=== PATIENT | female | born 1960 | race Caucasian/White ===

== ENCOUNTER 2024-08-22 14:26 | Emergency (ER) | payer MEDICARE, SELFPAY ==
[2024-08-22 14:27] VITALS: BP 118/50; PULSE 87; RESP 18; TEMP 36.4; O2SAT 96; BMI 21.9
[2024-08-22 14:38] VITALS: BP 118/50; PULSE 68; RESP 16; O2SAT 96
--- NOTE | 2024-08-22 16:06 | ED_ITS ---
HPI - General Adult General: Chief complaint: General Medical Stated complaint: displaced pina cath Time Seen by Provider: 08/22/24 14:28 History of Present Illness: This patient is a 64-year-old white female who presents to the emergency department needing Pina catheter replaced. Patient has vulvar cancer. Her home health care nurse saw her today. The Pina was not draining so it was removed. Home health care nurse tried to replace it but could not get another one in. Related Data Home Medications ?Medication ?Instructions ?Recorded ?Confirmed diphenhydramine HCl 25 mg tablet 25 mg PO Q4H PRN joshua rgic 08/22/24 08/22/24 reaction/rash/itching ipratropium 0.5 mg-albuterol 3 mg 3 ml inhalation Q6H PRN Shortness 08/22/24 08/22/24 (2.5 mg base)/3 mL nebulization Of Breath Or Wheezing soln lidocaine 5 % topical ointment 1 applic topical .5XDAI LY PRN 08/22/24 08/22/24 topical pain nitroglycerin 0.4 mg sublingual See Rx Instructions .R oute .COMPLEX 08/22/24 08/22/24 tablet polyethylene glycol 3350 17 See Rx Instructions .Route .COMPLEX 08/22/24 08/22/24 gram/dose oral powder (ClearLax) Previous Rx's ?Medication ?Instructions ?Recorded atropine 1 % eye drops 4 drp sublingual Q4H PRN 11/07 secretions #5 mL bisacodyl 10 mg rectal suppository 10 mg VT DAILY PRN constipation #5 08/18/24 ea hydroxyzine HCl 25 mg tablet 25 mg PO TID PRN Itching #5 tabs 08/18/24 lorazepam 2 mg/mL oral concentrate 2 mg sublingual Q4H PRN 08/18/24 Anxiety/Seizure #30 mL morphine concentrate 100 mg/5 mL 20 mg sublingual D IRECTED PRN 08/18/24 (20 mg/mL) oral solution Pain/SOB 14 days #30 mL ondansetron 4 mg disintegrating 4 mg translingual Q4H PRN nausea 08/18/24 tablet #5 tabs Allergies Allergy/AdvReac Type Severity Reaction Status Date / Time Penicillins Allergy rash Verified 08/18/24 15:59 Sulfa (Sulfonamide Allergy rash Verified 08/18/24 15:59 Antibiotics) Review of Systems General: Reports: 10 or more systems reviewed and unremarkable except in HPI and below Physical Exam Const: COMMON NORMALS: no acute distress, patient oriented x3 and no limitations GENERAL APPEARANCE: cooperative and comfortable HENMT: COMMON NORMALS: normocephalic, atraumatic, Normal nasal mucous memb ranes and turbinates present, moist oral mucous membranes and oropharynx normal HEAD & SCALP: normal to inspection, normocephalic and atraumatic FACE & SINUS: normal facial exam NOSE: Normal nasal mucous membranes and turbinates present Eye: COMMON NORMALS: Equal, round and reactive pupils present, EOMs intact bilaterally and conjunctivae normal GENERAL EYE: appearance normal, both eyes and all related structures CONJUNCTIVA: Yes conjunctivae normal PUPIL: Yes Equal, round and reactive pupils present Neck/C-Spine: COMMON NORMALS: supple and no JVD Chest: COMMONS NORMALS: normal inspection of the chest Resp: COMMON NORMALS: normal respiratory effort and clear to auscultation bilaterally AUSCULTATION: clear to auscultation bilaterally Cardio: COMMON NORMALS: no JVD, regular rate, regular rhythm, No gallops present (Cardio), No murmurs present (Cardio) and No rub (Cardio) RATE: regular rate RHYTHM: regular rhythm GI: COMMON NORMALS: Normal to inspection, nondistended, normoactive bowel sounds present, Soft to palpation and non-tender AUSCULTATION: Yes normoactive bowel sounds PALPATION: Yes Soft to palpation : COMMON NORMALS: Yes no CVA tenderness BLADDER/KIDNEY EXAM: Yes no CVA tenderness Back/Pelvis: COMMON NORMALS: no CVA tenderness and thoracic and lumbar spine normal to inspection Extremity: COMMON NORMALS: normal to inspection Neuro: COMMON NORMALS: patient oriented x3 and CN's II-XII intact bilaterally Psych: COMMON NORMALS: mental status grossly normal, Normal thought process present and cooperative THOUGHT PROCESS: Normal thought process present Skin: COMMON NORMALS: no rashes or lesions noted, turgor normal and no jaundice GENERAL SKIN EXAM: no rashes or lesions noted and turgor normal Course Vital Signs: Vital signs: Vital Signs Temperature 97.6 F 08/22/24 14:27 Pulse Rate 68 08/22/24 14:38 Respiratory Rate 16 08/22/24 14:38 Blood Pressure 118/50 08/22/24 14:38 Pulse Oximetry 96 08/22/24 14:38 Oxygen Delivery Me thod Nasal Cannula 08/22/24 14:27 Oxygen Flow Rate 2 08/22/24 14:27 MDM - General Adult Medical Decision Making Nursing staff replaced the Pina catheter. Patient was discharged in stable condition. No radiology studies performed this visit Discharge Plan Discharge Patient Disposition: Home Clinical Impression: Dislodged Pina catheter Qualifiers: Encounter type: initial encounter Qualified Code(s): T83.021A - Displacement of indwelling urethral catheter, initial encounter Condition: Stable Prescriptions: No Action ondansetron 4 mg tablet,disintegrating 4 mg translingual Q4H PRN (Reason: nausea) Qty: 5 0RF bisacodyl 10 mg suppository 10 mg VT DAILY PRN (Reason: constipation) Qty: 5 0RF lorazepam 2 mg/mL concentrate 2 mg sublingual Q4H PRN (Reason: Anxiety/Seizure) Qty: 30 0RF Rx Instructions: 0.25ml-1ml every 4 hours as needed for Anxiety/Seizure. Start 0.25ml may increase to 0.5ml-1ml every 4 hours. morphine concentrate 100 mg/5 mL (20 mg/mL) solution 20 mg sublingual DIRECTED PRN (Reason: Pain/SOB) 14 Days Qty: 30 0RF Rx Instructions: Give 0.25ml-1ml every hour as needed. May increase to 0.5ml-1ml every hour as needed. atropine 1 % drops 4 drp sublingual Q4H PRN (Reason: secretions) Qty: 5 0RF Rx Instructions: 4 drops SL q 4 hours PRN for terminal congestion/excessive secretions. hydroxyzine HCl 25 mg tablet 25 mg PO TID PRN (Reason: Itching) Qty: 5 0RF ipratropium-albuterol 0.5 mg-3 mg(2.5 mg base)/3 mL solution for nebulization 3 ml INHALATION Q6H PRN (Reason: Shortness Of Breath Or Wheezing) nitroglycerin 0.4 mg tablet, sublingual See Rx Instructions .ROUTE .COMPLEX Rx Instructions: DISSOLVE 1 TABLET UNDER THE TONGUE EVERY 5 MINUTES NEEDED FOR CHEST PAIN. DO NOT EXCEED A TOTAL OF 3 DOSES IN 15 MINUTES.. IF not resolved contact hospice. polyethylene glycol 3350 [ClearLax] 17 gram/dose powder See Rx Instructions .ROUTE .COMPLEX Rx Instructions: DISSOLVE 17grams in liquid AND drink EVERY DAY FOR CONSTIPATION. lidocaine 5 % ointment 1 applic topical .5XDAILY PRN (Reason: topical pain) diphenhydramine HCl 25 mg tablet 25 mg PO Q4H PRN (Reason: allergic reaction/rash/itching) Discharge Orders: Discharge ED (Routine); Ordered 08/22/24 Ordered By: Agustin Baumann Print Language: Belarusian Coding Level of Care Code ED [employer] for Gamlaiel Pierce
[2024-08-22] MEDS: HYDROcodone-acetaminophen 5-325 mg Tablet 2 TAB PO (16:17)
--- NOTE | 2024-08-22 16:41 | PC.PHAR ---
Pt is on [facility]-nurse finally called back and verified all pt medications.
[2024-08-22 16:47] VITALS: BP 104/54; O2SAT 94
[2024-08-22 17:01] VITALS: BP 104/54; PULSE 110; RESP 16; O2SAT 98
== END 2024-08-22 17:02 | disposition home or self-care (01) ==
PROVIDERS: Emergency Provider Emergency Medicine
DX: T83.021A Displacement of indwelling urethral catheter, initial encounter (principal); X58.XXXA Exposure to other specified factors, initial encounter; C51.8 Malignant neoplasm of overlapping sites of vulva
CPT/HCPCS: 51702; 99283